=== PATIENT | male | born 1985 | race Caucasian/White ===

== ENCOUNTER → 2021-02-01 | Outpatient (REF) | LOC: LAB 12:02 | DX: Z02.1 Encounter for pre-employment examination (principal) ==

== ENCOUNTER 2021-12-24 09:28 | Emergency (ER) | payer OTHER ==
[~2021-12-24] VITALS: Ht 185.4 cm; Wt 93.2 kg
[2021-12-24] MEDS ORDERED: PERCOCET 325 MG1 TA2 PO (11:34)
[2021-12-24 11:41] VITALS: BP 133/81
== END 2021-12-24 11:50 | disposition home or self-care (01) ==
LOC: ED 09:28
DX: S92.001A Unspecified fracture of right calcaneus, initial encounter for closed fracture (principal); W17.89XA Other fall from one level to another, initial encounter

== ENCOUNTER 2022-02-24 09:53 | Outpatient (RCR) | payer OTHER ==
[~2022-02-24 09:53] MED LIST: PERCOCET 325 MG1 TA2 PO
== END 2022-03-01 | disposition still patient (30) ==
LOC: PT
DX: Z98.890 Other specified postprocedural states (principal)

== ENCOUNTER 2022-03-03 09:48 | Outpatient (RCR) | payer OTHER | END 2022-04-01 | disposition home or self-care (01) | LOC: PT | DX: Z98.890 Other specified postprocedural states (principal) ==

== ENCOUNTER 2022-04-03 09:55 | Outpatient (RCR) | payer OTHER | END 2022-05-01 | disposition home or self-care (01) | LOC: PT | DX: Z98.890 Other specified postprocedural states (principal) ==

== ENCOUNTER 2022-05-06 15:25 | Outpatient (RCR) | payer OTHER | END 2022-06-01 | disposition home or self-care (01) | LOC: PT | DX: Z98.890 Other specified postprocedural states (principal) ==

== ENCOUNTER 2022-06-02 07:59 | Outpatient (RCR) | payer OTHER | END 2022-06-24 16:10 | disposition home or self-care (01) | LOC: PT 07:59 | DX: Z98.890 Other specified postprocedural states (principal) ==